=== PATIENT | female | born 1990 | race Caucasian/White ===

== ENCOUNTER 2018-12-24 20:19 | Observation (INO) | payer MEDICAID | END 2018-12-24 21:15 | disposition home or self-care (01) | LOC: FLD 20:19 | PROVIDERS: ADMIT Advanced Practice Midwife; ATTEND Advanced Practice Midwife | DX: O36.8130 Decreased fetal movements, third trimester, not applicable or unspecified (principal); Z3A.36 36 weeks gestation of pregnancy ==

== ENCOUNTER 2019-01-17 08:34 | Inpatient (IN) | payer MEDICAID ==
[2019-01-17] MEDS ORDERED: IBUPROFEN 600 MG TAB PO PRN (08:54)
[2019-01-17] MEDS ORDERED: OXYTOCIN/RINGERS LACTATE 1,000 ML IV PRN (08:54)
[2019-01-17] MEDS ORDERED: MISOPROSTOL 200 MCG TAB PR PRN (08:54)
[2019-01-17] MEDS ORDERED: EPSOM SALT 454 GM TP PRN ×2 (08:54→11:51)
[2019-01-17] MEDS ORDERED: OLIVE OIL 118 ML BTL MISC PRN (08:54)
[2019-01-17] MEDS ORDERED: LR 1,000 ML IV PRN (08:54)
[2019-01-17] MEDS ORDERED: LIDOCAINE 1% 300 MG/30 ML SDV SC PRN (08:54)
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
[2019-01-17 09:16] LABS: PLATELET COUNT 179 10^3/uL (150-400)
[2019-01-17] MEDS ORDERED: AMMONIA AROMATIC 1 EACH AMP IH ONE (09:26)
[2019-01-17] MEDS ORDERED: LIDOCAINE 1% 300 MG/30 ML SDV ONE (09:26)
[2019-01-17] MEDS ORDERED: OLIVE OIL 118 ML BTL MISC ONE (09:26)
[2019-01-17] MEDS ORDERED: OXYTOCIN 10 UNIT/ML VIAL ONE (09:27)
[2019-01-17] MEDS ORDERED: TERBUTALINE SULFATE 1 MG/ML VIAL ONE (09:27)
[2019-01-17] MEDS ORDERED: MISOPROSTOL 200 MCG TAB ONE (09:27)
[2019-01-17] MEDS ORDERED: VANCOMYCIN HCL/NORMAL SALINE 250 ML IV SCH (09:30)
[2019-01-17] MEDS ORDERED: ACETAMINOPHEN 325 MG TAB PO PRN (11:51)
[2019-01-17] MEDS ORDERED: SIMETHICONE 80 MG TAB CHEW PO PRN (11:51)
[2019-01-17] MEDS ORDERED: HYDROCORTISONE 0.5% CREAM TP PRN (11:51)
[2019-01-17] MEDS ORDERED: OXYTOCIN/RINGERS LACTATE 1,000 ML IV SCH (12:00)
--- NOTE | 2019-01-17 12:19 | OBDEL ---
Info Type: Vaginal Presentation at Delivery: Vertex L&D Analgesia/Anesthesia Type: None, Local GBS+: Yes Antibiotic Used for + GBS: Vancomycin Intrapartum Medications: Discontinued Medications Generic Name Dose Route Start Last Admin Trade Name Dash PRN Reason Stop Dose Admin Lactated Ringer's 1,000 mls @ 0 mls/hr 01/17/19 08:54 01/17/19 09:44 Lr IV 01/18/19 08:53 1,000 mls PRN PRN Administration SEE PROTOCOL CONDITIONS Protocol Per Protocol Vancomycin/Sodium Chloride 250 mls @ 250 mls/hr 01/17/19 09:30 01/17/19 09:43 Vancomycin 1 Gm (Premix) IV 02/16/19 09:29 250 mls Q12H RAJWINDER Administration Protocol Ibuprofen 600 mg 01/17/19 08:54 01/17/19 12:08 Motrin PO 600 mg ONCE PRN Administration post , pain Indications for Delivery: Spontaneous Labor, SROM Vaginal Delivery - Delivery Provider Delivery Physician/CNM: Josephine Albarran - Labor and Delivery Onset of Contractions Date: 01/17/19 Onset of Contractions Time: 05:30 Onset of Contractions Type: Spontaneous Rupture of Membranes Date: 01/17/19 Rupture of Membranes Type: Spontaneous Amniotic Fluid Color: Clear Dilation Complete Date: 01/17/19 Dilation Complete Time: 10:11 Placenta Delivery Date: 01/17/19 Placenta Delivery Time: 11:24 Total Hours of Labor: 5 Laceration: 2nd Degree, Other (Specify) (labial) Repair: 3-0, 4-0, Vicryl, Chromic Vaginal Sponge Count Correct: Yes Vaginal Needle Count Correct: Yes Vaginal Sweep Performed: Yes EBL: 200 Delivery Events: None Delivery Comment: delivered side lying spontaneous cry, baby to mothers chest [place] Data JAN: 01/17/19 Gestational Age: 40 week(s) and 0 day(s) ICD10 Worksheet Patient Problems: Problems Problem Status Onset Perineal laceration during delivery Acute (spontaneous vaginal delivery) Acute - ICD10 Problem Qualifiers (1) (spontaneous vaginal delivery) (2) Perineal laceration during delivery
[2019-01-17] MEDS: IBUPROFEN 600 MG TAB PO PRN (18:28)
[2019-01-18] MEDS: IBUPROFEN 600 MG TAB PO PRN ×4 (00:28→19:54)
[2019-01-18] MEDS: DOCUSATE SODIUM 100 MG CAP PO PRN (08:09)
--- NOTE | 2019-01-18 08:56 | OBPP ---
Progress Note Assessment/Plan: Assessment: [id number] s/p PPD#1 Plan: routine pp care support PRN hydrate/ambulate/rest will plan d/c home tomorrow 01/18/19 08:46 Subjective/ Course: 01/18/19 08:48 pt doing well, she was able to rest only couple hours last night. she is well. reports minimal bleeding. denies any pain. Objective: 01/17/19 09:00 Patient ABO/Rh O POSITIVE 01/17/19 09:00 Temp Pulse Resp BP Pulse Ox 36.3 C 66 16 108/53 L 97 01/18/19 08:00 01/18/19 08:00 01/18/19 08:00 01/18/19 08:00 01/18/19 08:00 Uterine Position/Fundal Height: Umbilicus -2 (slightly deviated to the left, pt has not voided this morning.) Uterine Tone: Firm
[2019-01-19] MEDS: IBUPROFEN 600 MG TAB PO PRN ×2 (02:06→08:34)
[2019-01-19] MEDS: DOCUSATE SODIUM 100 MG CAP PO PRN (08:34)
[2019-01-19 09:06] VITALS: BP 118/70
--- NOTE | 2019-01-19 11:50 | OBGCSDC ---
General Delivery Information - General Info : 1 Para: 1 Abortions: 0 Type: Vaginal L&D Analgesia/Anesthesia Type: None, Local Admission Date: 01/17/19 Labs: Patient ABO/Rh O POSITIVE 01/17/19 09:00 Hct 42.3 % (38.0-47.0) 01/17/19 09:00 - Hospital Course : 01/18/19 08:48 pt doing well, she was able to rest only couple hours last night. she is well. reports minimal bleeding. denies any pain. 01/19/19 16:21 S) Pt doing well, reports min pain and bleeding. she is ambulating and voiding without difficulty. She is . She desires discharge home today. O) VSS, afebrile constitutional: WNWF, A&Ox3 HEENT: normocephalic, atraumatic, supple Heart: RRR, No murmur Chest: CTA-B Abdomen: Soft, nontender Uterus: Firm at U-2 Lochia: Minimal rubra Perineum: Intact, healing well Extremities: Trace edema, and negative Adolfo's sign Neuro: Grossly normal A) 28 year-old P1 S/P PPD#2 P) Discharge home today Continue Pelvic rest x6wks Discussed danger signs (infection, preeclampsia, depression, heavy bleeding, etc) RTO in 2/4/6 weeks Vaginal - Delivery Provider Delivery Physician/CNM: Josephine Albarran - Diagnosis Labor: Spontaneous Rupture of Membranes Type: Spontaneous Amniotic Fluid Color: Clear Laceration: 2nd Degree, Other (Specify) (labial) Repair: 3-0, 4-0, Vicryl, Chromic Delivery Events: None - Delivery EBL: 200 [place] Data JAN: 01/17/19 Gestational Age: 40 week(s) and 2 day(s) [place] Delivery Date: 01/17/19 Delivery Time: 11:09 Sex of : Male Weight (gm): 3226 g Score (1 Min): 9 Score (5 Min): 9 Discharge Information - Discharge Information Condition: Good Instruction/Follow Up: Two Weeks, Four Weeks, Six Weeks
== END 2019-01-19 11:30 | disposition home or self-care (01) | DRG 560 ==
LOC: FLD 08:34 → FOB 14:15
PROVIDERS: ADMIT Advanced Practice Midwife; ATTEND Advanced Practice Midwife
DX: O70.1 Second degree perineal laceration during delivery (principal); O48.0 Post-term pregnancy; O99.820 Streptococcus B carrier state complicating pregnancy; Z3A.40 40 weeks gestation of pregnancy; Z37.0 Single live birth
CPT/HCPCS: J2590; J3105; J3370

== ENCOUNTER → 2019-02-02 | Outpatient (CLI) | payer MEDICAID | LOC: FLACT 12:50 | PROVIDERS: ATTEND Advanced Practice Midwife | DX: O92.13 Cracked nipple associated with lactation (principal) | CPT/HCPCS: G0463 ==